=== PATIENT | female | born 1995 | race Caucasian/White ===

== ENCOUNTER 2017-03-15 22:00 | Emergency (ER) | payer OTHER ==
[~2017-03-15] VITALS: Ht 172.7 cm; Wt 95.1 kg
[~2017-03-15 22:00] MED LIST: DOXY100C PO; TRAM50TA PO
[2017-03-15 22:14] VITALS: BP 144/67; PULSE 101; RESP 16; TEMP 99.1; O2SAT 98
[2017-03-15] MEDS ORDERED: CORTI10A LEFT EAR (22:34)
[2017-03-15] MEDS ORDERED: HYDR-3533 PO (22:34)
[2017-03-15] MEDS ORDERED: ZOFR4TAB PO (22:34)
--- NOTE | 2017-03-15 22:42 | PD ---
HPI Chief Complaint: ENT Complaint Time Seen by Provider: 22:30 Travel History International Travel<30 days: No Contact w/Intl Traveler<30days: No Traveled to known affect area: No History of Present Illness HPI This is a 21-year-old female who presents for evaluation of left ear pain. She reports that 5 days ago she fell off a rope swing and into the water. She reports that it felt like there was water in her left ear for the first few days. Over the past 2 days she has developed increasing pain in left ear canal. The pain is a throbbing pain which is constant, worse with otic manipulation. Denies cough, congestion, fevers or chills. She was seen at an outside urgent care center a few days ago prior to the area of her ear pain. She is prescribed doxycycline for an abrasion on her toe prophylactically. She had an x-ray of right elbow ordered. She was prescribed tramadol and ibuprofen which has not been helping with her pain. She has no other complaints at this time. PFSH Past Medical History Asthma: Yes Autoimmune Disease: No Blood Disorders: No Cardiovascular Problems: No Diminished Hearing: No Gastrointestinal Disorders: No Genitourinary: No Neurologic: No Psychiatric: No Respiratory: No Immunizations Current: Yes ?: Not LMP: 02/26/17 : 0 Past Surgical History Oral Surgery: Yes ([place] teeth extractions) Tonsillectomy: Yes Other Surgery: No Social History [facility] Use: [facility] ([facility] Tobacco Use: Yes (1/3ppd) Substance Use: No Allergies-Medications (Allergen,Severity, Reaction): Coded Allergies: No Known Allergies (Verified , 03/15/17) Reported Meds & Prescriptions Reported Meds & Active Scripts Active Zofran (Ondansetron HCl) 4 Mg Tab 4 Mg PO Q6HR PRN Dbgorcpo-Edsljelzh-VF Otic Drops (Neomycin/Polymyxin/Hydrocortisone) 1 % Soln 4 Drop LEFT EAR QID 10 Days Lortab (Hydrocodone-Acetaminophen) 5-325 Mg Tab 1 Tab PO Q6H PRN Review of Systems General / Constitutional: No: Fever, Chills HENT: Positive: Earache, No: Rhinitis, Congestion Respiratory: No: Cough Physical Exam Narrative GENERAL: Well-developed well-nourished female who appears uncomfortable on initial examination. SKIN: Warm and dry. HEAD: Atraumatic. Normocephalic. EYES: Pupils equal and round. No scleral icterus. No injection or drainage. ENT: No nasal bleeding or discharge. Mucous membranes pink and moist. The left external ear canal is erythematous and painful with manipulation. NECK: Trachea midline. No JVD. No lymphadenopathy. CARDIOVASCULAR: Regular rate and rhythm. No murmur appreciated. RESPIRATORY: No accessory muscle use. Clear to auscultation. Breath sounds equal bilaterally. Data Data Last Documented VS Vital Signs Date Time Temp Pulse Resp B/P (MAP) Pulse Ox O2 Delivery O2 Flow Rate FiO2 03/15/17 22:14 99.1 101 16 144/67 (92) 98 Orders Orders Acetamin-Hydrocod 325-5 Mg ([place] 5-325 (03/15/17 22:45) Ondansetron Odt (Zofran Odt) (03/15/17 22:45) Onmmbdjo-Rgnrvccb-Rd Otic Soln (Cortispo (03/15/17 22:45) MDM Medical Decision Making Medical Screen Exam Complete: Yes Emergency Medical Condition: Yes Medical Record Reviewed: Yes Differential Diagnosis Otitis externa, otitis media, foreign body, perforated tympanic membrane, malignant otitis externa Narrative Course Examination is consistent with left otitis externa. The patient is being given prescriptions for Cortisporin Otic solution, first dose provided tonight. The patient's pain has been refractory to tramadol and ibuprofen. She will be given a short course of Lortab for breakthrough pain as well as Zofran for any associated nausea. Diagnosis Primary Impression: Left otitis externa Qualified Codes: H60.332 - Swimmer's ear, left ear Additional Instructions: Medication as prescribed. Do not drive or drink alcohol when taking Lortab. Avoid getting water in left ear canal. Follow-up with primary care physician as needed and return for any acutely new or worsening symptoms. Med/Other Pt SpecificInfo: Prescription(s) given Scripts Ondansetron (Zofran) 4 Mg Tab 4 MG PO Q6HR Y for NAUSEA OR VOMITING, #15 TAB 0 Refills Prov: Dewayne Vogel MD 03/15/17 Ajmfgggr-Bvynvthpy-KW Otic Drops (Ccvxpkak-Pcxwjebbs-QB Otic Drops) 1 % Soln 4 DROP LEFT EAR QID for Infection for 10 Days, #1 BOTTLE 0 Refills Prov: Dewayne Vogel MD 03/15/17 Hydrocodone-Acetaminophen (Lortab) 5-325 Mg Tab 1 TAB PO Q6H Y for PAIN, #15 TAB 0 Refills Prov: Dewayne Vogel MD 03/15/17 Disposition: 01 DISCHARGE HOME Condition: Stable Noah Andrade Mar 15, 2017 22:42
[2017-03-15] MEDS ORDERED: ONDANSETRON ODT 4 MG TAB PO ONE (22:45)
[2017-03-15] MEDS ORDERED: NEOMYCIN/POLYMYXIN/HYDROCORT OTIC SOLN 10 ML BTL LEFT EAR ONE (22:45)
[2017-03-15] MEDS ORDERED: ACETAMINOPHEN/HYDROcodone 325 MG/5 MG TAB PO ONE (22:45)
== END 2017-03-15 23:15 | disposition home or self-care (01) ==
LOC: PHEFT 22:00
DX: H60.332 Swimmer's ear, left ear (principal); F17.200 Nicotine dependence, unspecified, uncomplicated; Z87.09 Personal history of other diseases of the respiratory system
CPT/HCPCS: 99284